=== PATIENT | female | born 1960 | race Caucasian/White ===

== ENCOUNTER 2019-11-08 17:55 | Inpatient (IN) | payer OTHER ==
[~2019-11-08] VITALS: Ht 160 cm; Wt 133.4 kg
[2019-11-08] MEDS ORDERED: LISINOPRIL40 MG PO (18:29)
[2019-11-08] MEDS ORDERED: DILTIAZEM CD240 MG PO (18:30)
[2019-11-08] MEDS ORDERED: LAMICTAL100 MG PO (18:31)
[2019-11-08] MEDS ORDERED: LEVOXYL88 MCG PO (18:31)
[2019-11-08] MEDS ORDERED: SEROQUEL25 MG PO (18:33)
[2019-11-08] MEDS ORDERED: MOBIC15 MG PO (18:33)
--- NOTE | 2019-11-08 20:30 | NUR ---
LUCERO CHAUHAN a 59 year old F admitted via stretcher from the [facility] ED as a voluntary admission. Arrived on unit at 2010. ALLERGIES: NKA. Vital signs are: [id number] 148/72. The client signed the following forms with stated understanding: Authorization For The Release of Medical Information, Clothing List, Consent to Voluntary Admission and Hospitalization, Consent and Release Forms/Receipt of Rights, Acknowledgement of Advance Directive Information, Behavioral Health Consent Form, and Informed Consent of Medications. Admitted under the services of Dr. DENISE HARE,[employer]. A search was conducted and hazardous articles were removed. Client was oriented to the unit. ALERT & ORIENTED X4. DEPRESSED & CRYING. STATED [facility] LIED TO HER & DID NOT KNOW SHE WAS COMING TO A ABDIEL UNIT. DENIES SUICIDAL FEELINGS AT THIS TIME. CONTRACTS FOR SAFETY. VERY CO-OPERATIVE. FRIDA LAI
--- NOTE | 2019-11-08 21:21 | NUR ---
DR LOPEZ NOTIFIED OF MEDICAL CONSULT & MED REQ READY FOR REVIEW
[2019-11-08 21:31] VITALS: BP 148/72
[2019-11-08 21:51] VITALS: BP 148/72
--- NOTE | 2019-11-08 22:30 | NUR ---
PT WAS MEDICATED WITH ATIVAN 1 MG PO @ 2136 FOR INCREASED ANXIETY. PT VERY HOPELESS & HELPLESS. NUMEROUS CRYING EPISODES. SHE DID STATE ATIVAN WAS EFFECTIVE APPROXIMATELY HALF AN HOUR LATER & THIS WAS ALSO NOTED SHE WAS CALMER.
--- NOTE | 2019-11-08 22:49 | NUR ---
DR CHANDLER ON UNIT TO SEE PT FOR MEDICAL MANAGEMENT.
--- NOTE | 2019-11-09 05:17 | NUR ---
PT HAS SLEPT IN THE QUIET ROOM ON A COUCH PER HER CHOICE. SLETP FROM [id number]. PRESENTLY AWAKE. TEARFUL. LOOKING AT MAGAZINES.
[2019-11-09 08:00] VITALS: BP 140/77
[2019-11-09 08:10] LABS: BASO % 0.4 % (0.0-1.0); EOS # 0.3 10*3/uL (0.0-0.4); EOS % 2.8 % (1.0-4.0); HEMATOCRIT 42.3 % (37.0-47.0); HEMOGLOBIN 13.6 g/dl (12.0-16.0); LYMPH % 19.9 % (27.0-41.0); MEAN CELL VOLUME 87.2 fl (81.0-99.0); MEAN CORPUSCULAR HGB CONC 32.2 g/dl (33.0-37.0); MEAN PLATELET VOLUME 9.4 fl (9.6-12.3); MONO # 0.7 10*3/uL (0.1-1.0); MONO % 6.9 % (3.0-9.0); NEUT # 6.9 10*3/uL (2.3-7.9); NEUT % 69.8 % (47.0-73.0); PLATELET COUNT AUTOMATED 410 10*3/uL (130-400); RED BLOOD COUNT 4.85 10*6/uL (4.10-5.10); RED CELL DISTRI WIDTH 12.8 % (0-14.5); WHITE BLOOD COUNT 9.9 10*3/uL (4.8-10.8)
[2019-11-09 08:48] LABS: ALBUMIN 3.7 gm/dl (3.1-4.5); BUN 17 mg/dl (7-24); CHLORIDE 108 mmol/L (98-107); POTASSIUM 3.8 mmol/L (3.5-5.1); SODIUM 140 mmol/L (136-145)
[2019-11-09 09:00] LABS: ALKALINE PHOSPHATASE 79 U/L (45-117); CREATININE 0.89 mg/dL (0.55-1.02); SGOT/AST 9 IU/L (3-35); SGPT/ALT 20 U/L (12-78); TOTAL PROTEIN 8.1 gm/dL (6.4-8.2)
[2019-11-09 09:56] LABS: VITAMIN D, 25-HYDROXY 15.4 ng/mL (30-100)
--- NOTE | 2019-11-09 11:47 | NUR ---
DR LUONG ON UNIT TO SEE PATIENT
--- NOTE | 2019-11-09 12:30 | NUR ---
Faxed admission clinical to [facility]. Awaiting response.
--- NOTE | 2019-11-09 12:57 | NUR ---
SMALL GROUP PT ATTENDED A SMALL GROUP SESSION WITH ANOTHER PEER AND THIS ARMOR RECONNAISSANCE SPECIALIST. DISCUSSION WAS CENTERED ON SUICIDAL IDEATIONS AND COPING STRATEGIES FOR SUCH. PT WAS OPEN IN DISCUSSION AND RECEPTIVE TO COPING STRATEGIES.
--- NOTE | 2019-11-09 14:43 | NUR ---
P-DEPRESSED MOOD, ISOLATIVE, WITHDRAWN, TEARFUL I-REDIRECTION WITH 1:1 THERAPEUTIC INTERVENTIONS. CONTINUE TO EDUCATE AND ENCOURAGE MEDICATION COMPLIANCE R-PATIENT MEDICATION COMPLIANT. PATIENT TEARFUL AND ISOLATIVE THROUGHOUT SHIFT. PATIENT INTERACTING WITH STAFF WHEN APPROACHED AND ENCOURAGED TO TALK. PATIENT WITH EPISODES OF CRYING AND TEARFUL THROUGHOUT SHIFT. PATIENT HAVING FEELINGS OF HOPELESSNESS. PATIENT VERBALIZED TO THIS NURSE THAT SHE IS "HOPEFUL THAT THE MEDICATION CHANGES WILL WORK AND MEDICATION CHANGES IN THE PAST HAVE NOT BEEN SUCCESSFUL". PATIENT PARTICIPATING IN GROUP THERAPY WITH RECREATIONAL THERAPIST AND ONE OTHER PATIENT. PATIENT MOVED TO ANOTHER ROOM TO HELP DECREASE STIMULI OF OTHER PATIENTS THAT ARE TRIGGERS FOR EPISODES OF TEARFULNESS. PATIENT CONTINENT OF BLADDER. PATIENT WITH LIMP WHEN AMBULATING. PATIENT ABLE TO DISCUSS WITH DR LUONG CONCERNS OF DISCOLORATION ON POSTERIOR TO LATERAL RIGHT LOWER EXTREMITY. PATIENT SATISFIED WITH DR LUONG'S EXPLANATION TO DISCOLORATION IN RIGHT LOWER EXTREMITY. PATIENT ABLE TO TALK TO SISTER WOLF VIA TELEPHONE. P-CONTINUE TO ENCOURGE MEDICATION COMPLIANCE, ENCOURAGE GROUP THERAPY WHILE AWAKE
--- NOTE | 2019-11-09 15:33 | NUR ---
DR BROWER UPDATE ABOUT PATIENT HOME MEDICATION NEEDING TO BE REVIEWED. DR BROWER TO REVIEW.
--- NOTE | 2019-11-09 15:47 | NUR ---
PM GROUP PT CHOSE NOT TO ATTEND AFTERNOON GROUP THERAPY BUT STAYED IN A QUIET ROOM READING.
--- NOTE | 2019-11-09 15:50 | NUR ---
Treatment Plan meeting was held with Dr. Salvador, RN, AT, THEATRE PROGRAM DIRECTOR-S and Thaw Shed Heater Tender. Plan for discharge Wednesday. Pt. will return home.
[2019-11-09 19:46] VITALS: BP 142/82
--- NOTE | 2019-11-09 19:56 | NUR ---
24 HR chart check completed.
--- NOTE | 2019-11-09 21:29 | NUR ---
P-DEPRESSED, ISOLATIVE, WITHDRAWN I-ENCOURAGE VENTILATION OF FEELINGS & PROVIDE EMOTIONAL SUPPORT. PROVIDE MEDICATION EDUCATION. ADMINISTER MEDS & MONITOR SLEEP R-PT HAS REMAINED IN HER ROOM READING A BOOK. SHE DOES HAVE A SLIGHTLY BRIGHTER AFFECT & STATED SHE IS STILL DEPRESSED BUT IS FEELING BETTER. NO EPISODES OF CRYING. DENIES SUICIDAL FEELINGS. CONTRACTS FOR SAFETY. RECEPTIVE TO MEDICATION EDUCATION & COMPLAINT WITH MEDS. ALERT & ORIENTED X 4. SHE IS MORE RECEPTIVE TO STAYING HERE FOR TREATMENT. REFUSED SNACK. P-CONTINUE TO MONITOR & PROVIDE PHYSICAL & EMOTIONAL SUPPORT NEEDED.
--- NOTE | 2019-11-10 05:49 | NUR ---
PT HAS SLEPT PAST 2245 WITH INTERMITTENT AWAKENINGS FOR A TOTAL OF 4 HOURS OF INTERUPTED SLEEP. UP TO BATHROOM INDEPENDENTLY.
[2019-11-10 07:54] VITALS: BP 143/77
--- NOTE | 2019-11-10 08:00 | NUR ---
Treatment Plan meeting was held with GERMAINE Hammond RN, FLIGHT FOLLOWER-S and Leather Production Worker. Plan for discharge Next week. Pt. will return home at discharge.
[2019-11-10 08:54] LABS: CHOLESTEROL 201 mg/dL (<200); HDL CHOLESTEROL 59 mg/dl (40-60); LDL CHOLESTEROL 129 mg/dL (9-159); TRIGLYCERIDES 67 mg/dl (<150); VLDL CHOLESTEROL 13 mg/dL (6-40)
--- NOTE | 2019-11-10 11:13 | NUR ---
DR LUONG ON UNIT TO ASSESS PT, UPDATE PROVIDED.
--- NOTE | 2019-11-10 11:57 | NUR ---
P-DEPRESSED MOOD, ISOLATIVE, WITHDRAWN I-REDIRECTION WITH 1:1 THERAPEUTIC INTERVENTIONS. CONTINUE TO EDUCATE AND ENCOURAGE MEDICATION COMPLIANCE R-PATIENT MEDICATION COMPLIANT. PATIENT ISOLATIVE AND WITHDRAWN IN QUIET AREA OR IN ROOM THROUGHOUT SHIFT. PATIENT INTERACTING WITH STAFF THROUGHOUT SHIFT. PATIENT WITH NO TEARFUL EPISODES AT THIS TIME. PATIENT READING BOOKS THROUGHOUT SHIFT. PATIENT EDUCATED ABOUT MEDICATION THIS SHIFT. P-CONTINUE TO ENCOURAGE MEDICATION COMPLIANCE, ENCOURAGE GROUP THERAPY WHILE AWAKE
--- NOTE | 2019-11-10 12:11 | NUR ---
Individual session with pt this AM. Discussed negative self-talk and the damage that this has on self-esteem. Pt voiced her negative self-talk that ruminates. Educated pt about the power and benefits of self-affirmations. Reviewed a list of self-affirmations and had pt speak each self-affirmation several times. Discussed pt's emotions linked to each affirmation. Reviewed the affirmations list again with pt and chose those that pt will plan to focus on. This BULLET LUBRICATING MACHINE OPERATOR-S requested that pt review the list of affirmations daily and speak them out loud several times. Also suggested to pt that pt look at her- self in the mirror when stating the affirmations. Pt is agreeable to this. Discussed pt's stressors of unemployment and no income. Discussed possible employment prospects. Pt is motivated for treatment. She continues to voiced depression and anxiety but does recognize that her anxiety has lessened. Pt also voiced a fear of returning home too soon and not being prepared to deal with her life stressors.
--- NOTE | 2019-11-10 15:21 | NUR ---
Left educational material about EMDR at pt's bedside. Pt was sleeping soundly.
[2019-11-10 19:30] VITALS: BP 117/70
--- NOTE | 2019-11-10 19:55 | NUR ---
24 HR chart check completed.
--- NOTE | 2019-11-10 21:43 | NUR ---
P-DEPRESSED, ISOLATIVE, WITHDRAWN I-ENCOURAGE VENTILATION OF FEELINGS & PROVIDE EMOTIONAL SUPPORT. PROVIDE MEDICATION EDUCATION. ADMINISTER MEDS & MONITOR SLEEP R-PT HAS REMAINED IN HER ROOM READING A BOOK. BRIGHTER AFFECT. STATED SHE IS STILL DEPRESSED BUT IS FEELING BETTER & HER ANXIETY IS MUCH BETTER & SHE IS NOT SHAKING ANY MORE. NO EPISODES OF CRYING. DENIES SUICIDAL FEELINGS. CONTRACTS FOR SAFETY. RECEPTIVE TO MEDICATION EDUCATION & COMPLAINT WITH MEDS. ALERT & ORIENTED X 4. REFUSED SNACK. P-CONTINUE TO MONITOR & PROVIDE PHYSICAL & EMOTIONAL SUPPORT NEEDED.
--- NOTE | 2019-11-11 05:56 | NUR ---
PT HAS SLEPT PAST 2300
[2019-11-11 08:00] VITALS: BP 130/68
--- NOTE | 2019-11-11 12:05 | NUR ---
AM GROUP/EXERCISE/BINGO/CRAFT PT IN ATTENDNACE AND PARTICIPATED IN ALL ACTIVITY EXCEPT FOR CRAFT. PT SITTING IN BACK OF ROOM ALONE ALTHOUGH ENCOURAGED TO SIT WITH PEERS AT THE FRONT OF THE ROOM. PT PLEASANT AND ON TASK WITH NO S.I. EXPRESSED AT THIS TIME. PT WILL CONTINUE TO ATTEND AND PARTICIPATE IN FUTURE GROUP SESSIONS.
--- NOTE | 2019-11-11 15:56 | NUR ---
PM GROUP/RIDDLES/CRAFT PT ENCOURAGED TO PARTICIPATE BUT PT CHOSE TO REMAIN IN ROOM RELAXING AT HTIS TIME. PT WILL CONTINUE TO BE ENOCURAGED TO ATTEND AN DPARTICIPATE IN FUTURE GROUP SESSIONS.
--- NOTE | 2019-11-11 16:35 | NUR ---
PT REMAINS SOMEWHAT ISOLATIVE THIS SHIFT, ALTHOUGH LESS SO. STATES SHE IS DEPRESSED AT THE THOUGHT OF GOING HOME BECAUSE SHE KNOWS THAT NOTHING HAS CHANGED. PT ENCOURAGED TO ATTEND GROUP THERAPY. ENCOURAGED TO VERBALIZE THOUGHTS THROUGH 1:1 INTERACTION WITH THIS NURSE. PT DID ATTEND MORNING GROUP THERAPY AND HAS BEEN MORE INTERACTIVE WITH STAFF. PT EDUCATED THAT ALTHOUGH WE CANNOT CHANGE WHAT IS HAPPENING AT HOME, WE CAN WORK ON POSITIVE COPING MECHANISMS THAT CAN HELP HER CHANGE THE WAY SHE REACTS TO THE SITUATION. PT STATES SHE AGREES AND IS WILLING TO WORK ON IT. WILL CONTINUE TO ENCOURAGE PARTICIPATION IN GROUP THERAPY FOR SOCIALIZATION AND SUPPORT. WILL CONTINUE TO ENCOURAGE PT TO VERBALIZE THOUGHTS AND FEELINGS. Q15 MIN MONITORING PER POLICY FOR SAFETY.
[2019-11-11 19:49] VITALS: BP 120/60
--- NOTE | 2019-11-11 22:02 | NUR ---
P-DEPRESSED MOOD, ISOLATIVE, WITHDRAWN I-REDIRECTION WITH 1:1 THERAPEUTIC INTERVENTIONS. CONTINUE TO EDUCATE AND ENCOURAGE MEDICATION COMPLIANCE R-PATIENT MEDICATION COMPLIANT. PATIENT ISOLATIVE AND WITHDRAWN IN IN ROOM THROUGHOUT SHIFT. PATIENT INTERACTING WITH STAFF. PATIENT WITH NO TEARFUL EPISODES AT THIS TIME. PATIENT READING BOOKS AT HS. PATIENT STATED TO THIS NURSE "THE KLONOPIN THAT I TAKE DURING THE DAY MAY BE TOO MUCH. I'LL TALK TO THEM ABOUT IT TOMORROW". PATIENT REFUSED NOURISHMENT AT HS BUT PROVIDED FLUIDS. PATIENT DENIES SUICIDAL OR HOMICIDAL IDEATIONS. PATIENT WITH NO HALLUCINATIONS OR DELUSIONS. P-CONTINUE TO ENCOURAGE MEDICATION COMPLIANCE, ENCOURAGE GROUP THERAPY WHILE AWAKE
--- NOTE | 2019-11-12 05:43 | NUR ---
PATIENT SLEPT 6 HOURS OF INTERRUPTED SLEEP THROUGHOUT SHIFT. Q 15 MINUTE CHECKS MAINTAINED. 24 HR chart check completed.
[2019-11-12 07:56] VITALS: BP 119/67
[2019-11-12 20:08] VITALS: BP 131/59
--- NOTE | 2019-11-13 01:14 | NUR ---
24 HR chart check completed.
--- NOTE | 2019-11-13 02:27 | NUR ---
P- ISOLATIVE, DEPRESSED, WITHDRAWN I- EDUCATE AND ENCOURAGE MED COMPLIANCE. ENCOURAGE TO VERBALIZE FEELINGS. R- IS MED COMPLIANT, C/O KLONOPIN MAKING HER SLEEPY DURING THE DAY. INFORMED THAT AM DOSE HAS BEEN DECREASED. STATES SHE CAN'T SLEEP AT NIGHT WITHOUT IT.REFUSED HS SNACK, BUT TAKES FLUIDS WELL. NO SI/HI IDEATIONS, P- CONTINUE TO ENCOURAGE MED COMPLIANCE , AND INTEACTION WITH PEERS And staff.
--- NOTE | 2019-11-13 05:35 | NUR ---
PATIENT SLEPT 4 HOURS LAST NIGHT.
[2019-11-13 07:53] VITALS: BP 108/68
--- NOTE | 2019-11-13 08:00 | NUR ---
Treatment Plan meeting was held with Dr. Salvador, GERMAINE Hammond, RN, AT, OPERATIONS PROJECT MANAGER-S and Airport Operations Specialist. Plan for discharge at the end of the week. Pt. will return home at this point.
--- NOTE | 2019-11-13 11:53 | NUR ---
AM GROUP MORNING GROUP THERAPY WAS SHORTENED DUE TO PT 1:1. PT WAS PRESENT FOR GROUP AND PARTICIPATED BY USING THE LIGHT THERAPY AND DISCUSSING NEGATIVE THOUGHT PATTERNS AND COPING SKILLS FOR SUCH. PT WAS ENGAGED AND INTERESTED IN LEARNING NEW SKILLS.
--- NOTE | 2019-11-13 14:18 | NUR ---
Spoke to Evens Goncalves at [facility]. They have the patient as inactive in their system. He did run a statewide check and the patient is active. He e-mailed his enrollment team to correct the active status. He will return call to when patient's status is active to explain how to start the authorization process.
--- NOTE | 2019-11-13 14:37 | NUR ---
Individual session with pt this afternoon. Time was primarily spent on problem solving for pt's current life stressors. Pt also spoke of current support system and emotioanl resources for when pt returns home.
--- NOTE | 2019-11-13 15:43 | NUR ---
PM GROUP PT ATTENDED AFTERNOON GROUP THERAPY AND PARTICIPATED IN ALL ACTIVITIES. PT WAS TALKATIVE AND ON TASK. PT EXPRESSED NO SUICIDAL IDEATIONS WHILE IN GROUP.
--- NOTE | 2019-11-13 16:05 | NUR ---
Received call back from Evens at [facility]. Patient is now active in their system. Faxed admission clinical through 11/12. Awaiting response.
--- NOTE | 2019-11-13 16:43 | NUR ---
P: TEARFUL AT TIMES, HOPELESS/HELPLESS I: PROVIDED 1:1 FOR THERAPEUTIC COMMUNICATION PROVIDED. PROVIDED MEDICATION EDUCATION. ASSISTED PT IN IDENTIFYING COPING MECHANISMS. MONITORED BEHAVIORS WITH Q15 MINUTE SAFETY CHECKS. R: PT STATED SHE FELT BETTER AFTER BRAINSTORMING WITH STAFF FOR COPING SKILLS. P: CONTINUE TO OFFER THERAPEUTIC COMMUNICATION AND MONITOR BEHAVIORS WITH Q15 MINUTE SAFETY CHECKS. CONTINUE TO PROVIDE MEDICATION EDUCATION. SEE [facility] FLOWSHEET FOR SPECIFIC MONITORING.
[2019-11-13 19:48] VITALS: BP 130/62
--- NOTE | 2019-11-13 20:04 | NUR ---
24 HR chart check completed.
--- NOTE | 2019-11-13 20:42 | NUR ---
EVENING/POSITIVE SELF-TALK PT IN ATTENDANCE AND PARTICIPATED IN ALL GROUP ACTIVITY. PT PLEASANT AND ON TASK WITH NO S.I. EXPRESSED AT THIS TIME. PT WILL CONTINUE TO ATTEND AND PARTICIPATE IN FUTRUE GROUP SESSIONS.
--- NOTE | 2019-11-13 23:41 | NUR ---
P-DEPRESSED, HOPELESS/HELPLESS I-ENCOURAGE VENTILATION OF FEELINGS & PROVIDE EMOTIONAL SUPPORT. PROVIDE MEDICATION EDUCATION. ADMINISTER MEDS & MONITOR SLEEP R-PT PARTICIPATED IN GROUP ACTIVITIES IN THE DINING ROOM WITH OTHER PEERS. SOCIALIZING & INTERACTING, LAUGHING. BRIGHT AFFECT. DURING 1:1 REPORTS FEELING BETTER BUT STILL HAVING SOME ANXIETY. DENIES SUICIDAL FEELINGS. CONTRACTS FOR SAFETY. COMPLAINT WITH MEDS. ALERT & ORIENTED X 4. ATE SNACK. P-CONTINUE TO MONITOR & PROVIDE PHYSICAL & EMOTIONAL SUPPORT NEEDED.
--- NOTE | 2019-11-14 05:11 | NUR ---
PT HAS SLEPT QUIETLY PAST 2200
[2019-11-14 07:49] VITALS: BP 128/73
--- NOTE | 2019-11-14 08:00 | NUR ---
Treatment Plan meeting was held with Dr. Salvador, RN, AT, MAIN LINE ASSEMBLER-S and Tool Sharpener. Plan for discharge at the end of the week. Pt. will return home with Follow Up arranged.
--- NOTE | 2019-11-14 10:29 | NUR ---
P: PT REPORTS FEELING A LITTLE ANXIOUS "IM A LITTLE WORRIED ABOUT GOING HOME, THE SITUATION THERE HAS NOT CHANGED." I: PROVIDE EMOTIONAL SUPPORT AND 1:1 FOR PT TO VOICE FEELINGS, ENCOURAGE MED COMPLIANCE AND PROVIDE MED EDUCATION, ENCOURAGE GROUP PARTICIPATION AND SOCIALIZTION R: PT ALERT TO PERSON, PLACE, TIME AND SITUATION. PT MED COMPLIANT WITHOUT DIFFICULTY, MED EDUCATION PROVIDED. PT GOAL DIRECTED TOWARDS DISCHARGE STATES "I AM GOING TO LOOK FOR ANOTHER JOB WHILE WAITING ON MY DISABILITY TO COME THROUGH, I NEED TO WORK AND YOU GUYS HAVE HELPED ME SO MUCH HERE, I CAN DEAL WITH MY SITUATIONS AT HOME." PT DENIES ANY SUICIDAL THOUGHTS, VERBALLY CONTRACTS FOR SAFETY. NO HALLUCINATIONS OR DELUSIONS NOTED. PT AMBULATORY THROUGHOUT UNIT, GAIT STEADY. PT CONTINENT OF BOWEL AND BLADDER. P: MONITOR PT BEHAVIORS ON Q15 MIN SAFETY CHECKS, ENCOURAGE MED COMPLIANCE AND PROVIDE MED EDUCATION, ENCOURAGE GROUP PARTICIPATION AND SOCIALIZATION, PROVIDE EMOTIONAL SUPPORT AND 1:1 FOR PT TO VOICE FEELINGS.
--- NOTE | 2019-11-14 11:39 | NUR ---
AM GROUP/MUSIC THERAPY PT ATTENDED AND PARTICIPATED IN ALL GROUP ACITIVITIES. PT WAS FOCUSED AND ON TOPIC. PT EXPRESSED NO SUICIDAL IDEATIONS WHILE IN GROUP.
--- NOTE | 2019-11-14 12:41 | NUR ---
ZACKERY PARSONS ROUGH AND TRUEING MACHINE OPERATOR ON UNIT TO ASSESS PT, UPDATE PROVIDED.
--- NOTE | 2019-11-14 13:34 | NUR ---
IP 6 days ann per Martha Austin, NRD 11/14, auth # [id number]
--- NOTE | 2019-11-14 13:43 | NUR ---
Faxed continued review stay clinical to [facility]
--- NOTE | 2019-11-14 15:22 | NUR ---
Group therapy this afternoon. Discussed life stressors, negative coping skills, and positive coping skills. Provided education about the benefits of positive coping skills. Patients then named positive coping skills. Hand-outs were provided. Pt participated fully in discussion and was supportive of her peers. Pt was able to list several positive coping skills.
--- NOTE | 2019-11-14 15:37 | NUR ---
PM GROUP PT DID NOT ATTEND AFTERNOON GROUP THERAPY. PT WAS IN A GROUP WITH WHEEL ADJUSTER.
--- NOTE | 2019-11-14 17:55 | NUR ---
SPOKE WITH DR MEYERS AT [phone] RE: PT REQUESTING ORDER FOR GOLDBOND POWDER D/T THE [place], MED UPDATED IN PT HOME MED REC. MED CONTINUED PER DR. MEYERS. FAMILY BROUGHT IN GODLBOND POWDER, MED TAKEN TO PHARMACY.
[2019-11-14] MEDS ORDERED: GOLD BOND MEDI113 G2 T (17:59)
[2019-11-14 19:50] VITALS: BP 124/76
--- NOTE | 2019-11-14 20:39 | NUR ---
EVENING/YAHTZEE/MUSIC PT ATTENDED AND PARTICIPATED IN ALL ACTIVITY. PT PLEASANT AND ON TASK WITH NO S.I. EXPRESSED. PT WILL CONTINUE TO ATTEND AND PARTICIPATE IN FUTURE GROUP SESSIONS.
--- NOTE | 2019-11-14 22:41 | NUR ---
NO ADVERSE BEHAVIORS NOTED. PATIENT ALERT AND ORIENTED X4. PT CALM, COOPERATIVE, AND INTERACTIVE. PT SAT IN DINING ROOM WITH PEERS TO WATCH A MOVIE AND HAD SNACK. DURING 1:1 PATIENT STATED THAT SHE FEELS SHE IS DOING GOOD AND HAD AN OKAY DAY. PT DENIES SUICIDAL IDEATIONS AND CONTRACTED FOR SAFETY. PT ALSO DENIES HI, HALLUCINATIONS, OR PAIN. PT MEDICATION COMPLIANT WITHOUT DIFFICULTY AFTER REVIEW. PT INDEPENDENT IN ADL'S, AMBULATORY WITH A STEADY GAIT, CONTINENT OF BOWEL AND BLADDER. PT CURRENTLY LAYING DOWN WITH EYES CLOSED, RESPIRATIONS EASY AND REGULAR, NO SIGNS OR SYMPTOMS OF DISTRESS NOTED. PLAN IS TO CONTINUE MONITOR MOOD AND BEHAVIORS. PROVIDE 1:1 WITH THERAPEUTIC INTERVENTIONS. PROVIDE EMOTIONAL SUPPORT NEEDED. ENCOURAGE MEDICATION COMPLIANCE AND EDUCATE. MAINTAIN Q 15 MIN CHECKS.
--- NOTE | 2019-11-14 23:50 | NUR ---
24 HOUR CHART CHECK COMPLETED.
--- NOTE | 2019-11-15 08:00 | NUR ---
Treatment Plan meeting was held with Dr. Salvador, RN, RRTS-S and Drywall Finishing Foreman. Plan for discharge Wed/Wednesday. Pt. will return home at discharge with Follow up scheduled.
[2019-11-15 08:07] VITALS: BP 110/62
--- NOTE | 2019-11-15 10:35 | NUR ---
Individual time spent with pt this AM assisting pt in completing Function Report for Social Security Disability.
--- NOTE | 2019-11-15 10:48 | NUR ---
ZACKERY PARSONS POSTING SPECIALIST ON UNIT TO ASSESS PT, UPDATE PROVIDED.
--- NOTE | 2019-11-15 11:24 | NUR ---
NO ADVERSE MOODS OR BEHAVIORS NOTED AT THIS TIME. PT ALERT TO PERSON, PLACE, TIME AND SITUATION. PT MED COMPLIANT WITHOUT DIFFICULTY, MED EDUCATION PROVIDED. PT CALM, MOOD IS STABLE. PT REPORTS FEELING "A LITTLE ANXIOUS, BUT BUT BEING HERE HAS HELPED SO MUCH." NO HALLUCINATIONS OR DELUSIONS NOTED. PT DENIES ANY SUICIDAL THOUGHTS, VERBALLY CONTRACTS FOR SAFETY. PT AMBULATORY THROUGHTOUT UNIT, GAOT STEADY. PT CONTINENT OF BOWEL AND BLADDER. PLAN IS TO MONITOR PT BEHAVIORS ON Q15 MIN SAFETY CHECKS, ENCOURAGE MED COMPLIANCE AND PROVIDE MED EDUCATION, PROVIDE EMOTIONAL SUPPORT AND 1:1 FOR PT TO VOICE FEELINGS, ENCOURAGE GROUP PARTICIPATION AND SOCIALIZATION.
[2019-11-15 19:48] VITALS: BP 116/58
--- NOTE | 2019-11-15 23:02 | NUR ---
PT PLEASANT AND COOPERATIVE, MEDICATION COMPLIANT. DENIES SI. STATES SHE IS FEELING BETTER. PT INTERACTIVE WITH STAFF AND PEERS. Q15 MIN MONITORING PER POLICY FOR SAFETY.
--- NOTE | 2019-11-16 05:42 | NUR ---
pt slept approximately 7 hours this shift
--- NOTE | 2019-11-16 07:24 | NUR ---
IP ann 11/08-11/13, IP denied 11/14 forward per Martha at [facility]. Will set up peer to peer. Ref # [id number]. kit planner notified.
[2019-11-16 08:19] VITALS: BP 142/80
--- NOTE | 2019-11-16 10:15 | NUR ---
Spoke to Emily at [facility] regarding setting up peer to peer. Peer to peer set up for Dr. Salvador. Dr. Melissa Goldstein will call Dr. Salvador either Wednesday or Wednesday between the hours of 8am and 11am. Notified Dr. Salvador and inventory control planner of peer to peer set up.
--- NOTE | 2019-11-16 11:49 | NUR ---
AM GROUP PT WAS IN A PRIVATE SESSION WITH LIKE PEERS AND THE EDITOR TRADE JOURNAL.
--- NOTE | 2019-11-16 15:04 | NUR ---
P- PT REPORTS MOOD HAS IMPROVED, DENIES FEELING DEPRESSED, PT CONTINUES TO REPORT FEELINGS OF ANXIETY ESPECIALLY WHEN THINKING ABOUT RETURNING HOME. I- ORIENTATION, MOOD AND BEHAVIOR ASSESSED. ASSESSED PT FOR SI/HI, INTENT OR PLAN. ASSESSED PT FOR S/S HALLUCINATIONS, PARANOIA AND/OR DELUSIONS. MEDICATIONS ADMINISTERED PER PHYSICIAN'S ORDERS. ASSISTANCE WITH ADL CARE PROVIDED NEEDED. ENCOURAGED PT TO ATTEND AND PARTICIPATE IN CABRAL MILIEU GROUPS AND ACTIVITIES. R- PT IS ALERT AND ORIENTED X4. MEMORY INTACT. RESPS EASY AND EVEN ON ROOM AIR. SPEECH IS WNL AND COHERENT, ABLE TO MAKE NEEDS KNOWN WITHOUT DIFFICULTY. PT REPORTS MOOD HAS IMPROVED, STATES SHE IS FEELING BETTER AND LESS DEPRESSED. PT CONTINUES TO REPORT FEELING ANXIOUS ESPECIALLY WHEN ALONE OR WHEN SHE THINKS ABOUT RETURNING HOME PT STATES "I JUST KNOW THAT I'M GOING BACK HOME TO THE SAME ENVIRONMENT AND THAT NOTHING HAS CHANGED". PT ALSO STATES FEELING ANXIOUS ABOUT LOSING TIME HERE THAT SHE COULD BE PUTTING TOWARD LOOKING FOR A NEW JOB BUT STATES SHE DOESN'T FEEL LIKE SHE IS READY TO GO HOME YET EITHER. EMOTIONAL SUPPORT PROVIDED. AUTOMATION SALES MANAGER IS WORKING WITH PT REGARDING THESE CONCERNS. PT DENIES SI/HI, INTENT OR PLAN. PT DENIES HALLUCINATIONS, NO RESPONSE TO INTERNAL STIMULI NOTED. NO PARANOIA OR DELUSIONS NOTED. PT IS CALM, PLEASANT AND COOPERATIVE. MED COMPLIANT. INTERACTS WELL WITH STAFF AND PEERS. NO DISTRESS NOTED. P- PLAN TO CONTINUE CURRENT TREATMENT, CONTINUE TO MONITOR MOOD AND BEHAVIORS, PROVIDE APPROPRIATE REORIENTATION, REDIRECTION AND 1:1 NEEDED. CONTINUE TO ENCOURAGE MEDICATION COMPLIANCE WELL GROUP ATTENDANCE AND PARTICIPATION.
--- NOTE | 2019-11-16 15:42 | NUR ---
PM GROUP PT ATTENDED AFTERNOON GROUP THERAPY AND PARTICIPATED IN ALL ACTIVITIES. PT WAS LAUGHING AND JOKING WITH STAFF AND PEERS AND EXPRESSED NO ANXIETY OVER GOING HOME OR ANY SUICIDAL IDEATIONS.
--- NOTE | 2019-11-16 15:56 | NUR ---
Group therapy this AM. Pt participated fully in discussion about gratitude and the power of thankfulness. Discussed principles of gratitude and actions to incorporate the principles. Discussed the use of a gratitude journal. Hand-outs provided and gratitude journal sheets provided. Pt was supportive of her peers.
--- NOTE | 2019-11-16 16:29 | NUR ---
Treatment Plan meeting was held with Dr. Salvador, RN, AT, ASSISTANT DIRECTOR OF ADMISSIONS-S and Fish Hatchery Manager. Plan for discharge Wednesday/Wednesday with return home.
[2019-11-16 20:00] VITALS: BP 128/57
--- NOTE | 2019-11-16 21:54 | NUR ---
P-DEPRESSED MOOD I-REDIRECTION WITH 1:1 THERAPEUTIC INTERVENTIONS. CONTINUE TO EDUCATE AND ENCOURAGE MEDICATION COMPLIANCE R-PATIENT MEDICATION COMPLIANT. PATIENT INTERACTING WITH STAFF. PATIENT REFUSED NOURISHMENT AT BUT PROVIDED FLUIDS. PATIENT DENIES SUICIDAL OR HOMICIDAL IDEATIONS. PATIENT WITH NO HALLUCINATIONS OR DELUSIONS. PATIENT STATING "I JUST FEEL ANXIOUS ABOUT TRYING TO GO HOME. I'M TRYING TO FIND A JOB BUT I HAVE TO WAIT ON MY SISTER TO SEND MY RESUME TO [facility]. I'M JUST NERVOUS". PATIENT CONTINES TO WEAR VELCRO BRACE TO RIGHT FOOT TO HELP ASSIST WITH AMBULATION P-CONTINUE TO ENCOURAGE MEDICATION COMPLIANCE, ENCOURAGE GROUP THERAPY WHILE AWAKE
--- NOTE | 2019-11-17 05:57 | NUR ---
PATIENT SLEPT 8 HOURS OF UNINTERRUPTED SLEEP THROUGHOUT SHIFT. Q 15 MINUTE CHECKS MAINTAINED. 24 HR chart check completed.
[2019-11-17 07:43] VITALS: BP 138/68
--- NOTE | 2019-11-17 08:00 | NUR ---
Treatment Plan meeting was held with GERMAINE Hammond, RN, AT, INTELLIGENCE OFFICER-S and Mri Tech. Plan for discharge Wednesday with return home and Follow up appointments scheduled.
--- NOTE | 2019-11-17 08:04 | NUR ---
Patient in dining room eating with no c/o discomfort. Respirations easy and regular. Vital signs stable. No overt distress. DOMINIQUE SALAZAR
--- NOTE | 2019-11-17 11:48 | NUR ---
FAUSTINO ORONA/LILLI PT ATTENDED MORNING GROUP THERAPY AND PARTICIPATED IN ALL ACITIVITES. PT WAS ENGAGED AND ON TOPIC. PT STATED, "THANK YOU FOR ALL THE HELP THAT YOU HAVE GIVEN ME HERE, I WILL TAKE ALL OF THIS INFORMATION HOME AND USE IT!"
--- NOTE | 2019-11-17 13:41 | NUR ---
Group session co-facilitated with Kelly Barahona, general activities therapist. Topic of group: Diop's Day, types of love, and self-love/self-care. Pt attended and participated fully. Pt shared openly and was supportive of her peers. Pt is future-oriented as she shared about goals when she returns home.
--- NOTE | 2019-11-17 14:46 | NUR ---
PT SLIGHTLY ANXIOUS TODAY DURING DISCUSSION OF PLANS TO GO HOME EARLY NEXT WEEK. PT PROVIDED WITH 1:1 AND EMOTIONAL SUPPORT. DISCUSSED COPING SKILLS. PT STATES SHE KNOWS THAT GOING HOME IS INEVITABLE BUT SHE "LOVES IT HERE" AND JUST THINKS EVERYONE IS SO NICE. PT STATES THAT SHE WILL USE HER COPING SKILLS AND TRY TO SUCCEED, BUT SHE WILL MISS THE PEOPLE HERE AND IS WORRIED SHE MAY NOT. PT EDUCATED ON FOLLOW UP APPOINTMENTS THAT WILL BE MADE SO SHE CAN SPEAK TO PHYSICIANS AND COUNSELORS OUTPATIENT. PT VERBALIZED UNDERSTANDING AND STATES THAT SHE THINKS SHE WILL BE ABLE TO USE THE NEXT COUPLE OF DAYS TO PREPARE FOR DISCHARGE. WILL CONTINUE TO PROVIDE 1:1 AND EMOTIONAL SUPPORT APPROPRIATE. WILL CONTINUE TO MONITOR PT Q15 MIN PER POLICY FOR SAFETY.
--- NOTE | 2019-11-17 15:20 | NUR ---
Individual time spent with pt this afternoon assisting pt in problem solving for her current life stressors.
--- NOTE | 2019-11-17 15:33 | NUR ---
PM GROUP PT ATTENDED AND PARTICIPATED IN AFTERNOON GROUP THERAPY. PT EXPRESSED NO SUICIDAL IDEATIONS WHILE IN GROUP
[2019-11-17 20:14] VITALS: BP 133/61
--- NOTE | 2019-11-18 01:03 | NUR ---
NO ADVERSE BEHAVIORS NOTED. PATIENT ALERT AND ORIENTED X4. PT CALM, COOPERATIVE, AND INTERACTIVE. PT SAT IN DINING ROOM WITH PEERS TO WATCH A MOVIE AND HAD SNACK. DURING 1:1 PATIENT WAS PLEASANT AND STATED THAT SHE IS FEELING BETTER AND APPRECIATES WHAT EVERYONE HAS DONE FOR HER HERE. PT DENIES SUICIDAL IDEATIONS AND CONTRACTED FOR SAFETY. PT ALSO DENIES HI, HALLUCINATIONS, OR PAIN. PT MEDICATION COMPLIANT WITHOUT DIFFICULTY AFTER REVIEW. PT INDEPENDENT IN ADL'S, AMBULATORY WITH A STEADY GAIT, CONTINENT OF BOWEL AND BLADDER. PT SHOWERED THIS HS AND SHAVED WITH ASSISTANCE. PT CURRENTLY LAYING DOWN WITH EYES CLOSED, RESPIRATIONS EASY AND REGULAR, NO SIGNS OR SYMPTOMS OF DISTRESS NOTED. PLAN IS TO CONTINUE MONITOR MOOD AND BEHAVIORS. PROVIDE 1:1 WITH THERAPEUTIC INTERVENTIONS. PROVIDE EMOTIONAL SUPPORT NEEDED. ENCOURAGE MEDICATION COMPLIANCE AND EDUCATE. MAINTAIN Q 15 MIN CHECKS.
--- NOTE | 2019-11-18 05:29 | NUR ---
24 HOUR CHART CHECK COMPLETED.
--- NOTE | 2019-11-18 06:03 | NUR ---
PATIENT OBSERVED ON Q 15 MIN CHECKS TO HAVE SLEPT APPROX 6 HOURS WITH X1 AWAKENING TO USE THE RESTROOM. NO SIGNS OR SYMPTOMS OF DISTRESS NOTED.
[2019-11-18 07:51] VITALS: BP 122/75
--- NOTE | 2019-11-18 08:06 | NUR ---
Patient eating breakfast in dining room with peers at this time. Respirations easy and regular. Vital signs stable. No overt distress. EDIN TOTH PMTARUN- ON UNIT TO SEE PT AT THIS TIME. UPDATE GIVEN.
--- NOTE | 2019-11-18 11:31 | NUR ---
, AND ON UNIT TO SEE PT AT THIS TIME.
--- NOTE | 2019-11-18 11:57 | NUR ---
AM GROUP/AFFIRMATIONS/MUSIC PT ATTENDED AND PARTICIPATED IN ALL GROUP ACTIVITY. PT PLEASANT AND ON TASK. PT STATES "I AM FEELING EMPOWERED TODAY, I AM GOING TO LEAVE HERE AND GET A JOB!". PT EXPRESSES NO S.I. AT THIS TIME.
--- NOTE | 2019-11-18 12:45 | NUR ---
P- PT CONTINUES TO REPORT FEELING INCREASED ANXIETY WHEN THIKING ABOUT RETURNING HOME I- ORIENTATION, MOOD AND BEHAVIORS ASSESSED. ASSESSED PT FOR SI/HI, INTENT OR PLAN. ASSESSED PT FOR S/S HALLUCINATIONS, PARANOIA AND/OR DELUSIONS. MEDICATIONS ADMINISTERED PER PHYSICIAN'S ORDERS. ASSISTANCE WITH ADL CARE PROVIDED NEEDED. ENCOURAGED PT TO ATTEND AND PARTICIPATE IN [facility] GROUPS AND ACTIVITIES. R- PT IS ALERT AND ORIENTED X4. MEMORY INTACT. RESPS EASY AND EVEN ON ROOM AIR. MOOD APPEARS STABLE, PT STATES SHE IS FEELING "GOOD" BUT REPORTS CONTINUED EPISODES OF INCREASED ANXIETY WHEN SHE THINKS ABOUT RETURNING HOME BUT PT STATES "I KNOW I JUST HAVE TO DO IT EVENTUALLY". EMOTIONAL SUPPORT PROVIDED. AFFECT IS BROAD RANGE AND APPROPRIATE. SPEECH IS WNL AND COHERENT, ABLE TO MAKE NEEDS KNOWN WITHOUT DIFFICULTY. PT DENIES SI/HI, INTENT OR PLAN. PT DENIES HALLUCINATIONS, NO RESPONSE TO INTERNAL STIMULI NOTED. NO PARANOIA OR DELUSIONS NOTED. PT IS CALM, PLEASANT AND COOPERATIVE. INTERACTS WELL WITH STAFF AND PEERS. PT IS AMBULATORY WITH STEADY GAIT, INDEPENDENT WITH ADL CARE, CONTINENT OF BOWEL AND BLADDER. DISPLAYS GOOD APPETITE WITH ADEQUATE FLUID INTAKE. NO DISTRESS NOTED. P- PLAN TO CONTINUE CURRENT TREATMENT, CONTINUE TO MONITOR MOOD AND BEHAVIORS, PROVIDE APPROPRIATE REORIENTATION, REDIRECTION AND 1:1 NEEDED. CONTINUE TO ENCOURAGE MEDICATION COMPLIANCE WELL GROUP ATTENDANCE AND PARTICIPATION.
--- NOTE | 2019-11-18 15:55 | NUR ---
PM GROUP/AFFIRMATIONS/MOVIE PT ATTENDED AND PARTICIPATED IN ALL GROUP ACTIVITY. PT PLEASNAT AND ON TASK WITH NO S.I. OR ANXIETY EXPRESSED.
[2019-11-18 20:00] VITALS: BP 143/73
--- NOTE | 2019-11-18 20:21 | NUR ---
24 HR chart check completed.
--- NOTE | 2019-11-18 23:30 | NUR ---
PT SAT IN THE DINING ROOM SOCIALIZING & LAUGHING WITH SELECT PEERS. STABLE MOOD. BRIGHT AFFECT. PLEASANT. ALERT & ORIENTED X 4. DENIES SUICIDICAL THOUGHTS OR DEPRESSION. STATED SHE IS NOT ANXIOUS NOW BUT WILL PROBABLE BE A LITTLE ANXIOUS ON WEDNESDAY WHEN SHE STATED SHE IS BEING DISCHARGED. COMPLIANT WITH MEDS & STATES A GOOD UNDERSTANDING OF THEM & FEELS THAT THEY ARE WORKING FOR HER. VOICED HER PRAISE TO ALL OF THE STAFF FOR THEIR HELP & STATED SHE REALLY LIKES IT HERE. INDEPENDENT. WILL CONTINUE TO MONITOR.
--- NOTE | 2019-11-19 05:29 | NUR ---
PT HAS SLEPT PAST 2314
[2019-11-19 07:33] VITALS: BP 131/62
--- NOTE | 2019-11-19 08:23 | NUR ---
Patient sitting quietly with no c/o discomfort. Respirations easy and regular. Vital signs stable. No overt distress. DOMINIQUE SALAZAR
--- NOTE | 2019-11-19 12:14 | NUR ---
AM GROUP/LEISURE SKILLS PT ATTENDED AND PARTICIPATED IN ALL GROUP ACTIVITY. PT PLEASANT STATING "I CAN'T BELIEVE THE DIFFERENCE I FEEL NOW COMPARED TO HOW I FELT WHEN I FIRST GOT HERE. I CAN'T BELIEVE HOW MUCH BETTER I FEEL" PT EXPRESSES NO S.I. AT THIS TIME, BUT SPEAKS OF BEING HOPEFUL. PT WILL ATTEND/PARTICIPATE FUTURE GROUP SESSIONS AND WILL PLAN FOR DISCHARGE TOMORROW.
--- NOTE | 2019-11-19 12:48 | NUR ---
PT STATES SHE FEELS GOOD, BUT IS SOMEWHAT ANXIOUS ABOUT GOING HOME. PT PROVIDED WITH 1:1 AND EMOTIONAL SUPPORT. DISCUSSED COPING SKILLS. PT STATES THAT SHE IS GOING TO SPEND TIME AT HER SISTER IN LAW'S HOUSE SO THAT SHE DOES NOT FEEL SO ALONE. PT ENCOURAGED TO GET OUT INTO THE COMMUNITY AND FIND SOCIAL GROUPS TO KEEP HER FROM FEELING SO ISOLATED. WILL CONTINUE TO PROVIDE 1:1 AND EMOTIONAL SUPPORT APPROPRIATE. WILL CONTINUE TO MONITOR PT Q15 MIN PER POLICY FOR SAFETY.
--- NOTE | 2019-11-19 19:26 | NUR ---
24 HR chart check completed.
[2019-11-19 19:40] VITALS: BP 130/68
--- NOTE | 2019-11-19 21:48 | NUR ---
PT SAT IN THE DINING ROOM SOCIALIZING & LAUGHING WITH SELECT PEERS. STABLE MOOD. BRIGHT AFFECT. PLEASANT. ALERT & ORIENTED X 4. DENIES SUICIDICAL THOUGHTS OR DEPRESSION. VOICES POSITIVE COPING SKILLS AFTER DISCHARGE & POSITIVE FUTURE. COMPLIANT WITH MEDS & STATES A GOOD UNDERSTANDING OF THEM & FEELS THAT THEY ARE WORKING FOR HER. INDEPENDENT. WILL CONTINUE TO MONITOR.
--- NOTE | 2019-11-20 06:06 | NUR ---
PT HAS SLEPT PAST 2314
[2019-11-20] MEDS ORDERED: ABILIFY10 MG PO (07:41)
[2019-11-20] MEDS ORDERED: PRISTIQ50 MG PO (07:41)
[2019-11-20] MEDS ORDERED: CLONAZEPAM1 MG PO (07:41)
[2019-11-20 07:45] VITALS: BP 138/78
--- NOTE | 2019-11-20 07:45 | NUR ---
Patient eating breakfast in dining room with peers at this time. Pt offers no complaints. Respirations easy and regular. Vital signs stable. No overt distress. [facility] pt at this time, update given.
--- NOTE | 2019-11-20 08:00 | NUR ---
Treatment Plan meeting was held with GERMAINE Hammond, RN, AT, PARTITION MAKING MACHINE OPERATOR-S and Radio Performer. Plan for discharge today with return Home. Follow up appointments have been scheduled.
--- NOTE | 2019-11-20 10:28 | NUR ---
Individual session with pt this AM. Discussed pt's action plan for when pt returns home today. Pt shared her detailed plan for continuing to search for employment and cleaning of her home. Pt stated that she feels empowered and ready to go home. Discussed pt's psychiatric and counseling follow-ups. Pt is future-oriented as she shared of her plans for her home and job searching. She denies suicidal ideations stating that she feels hopeful and empowered. Pt is animated and displays a full affect.
--- NOTE | 2019-11-20 10:33 | NUR ---
Additional Counseling appointment added to follow up appointments for Hilary Hitchcock Counselor 11/30/2019 2:00 p.m.
--- NOTE | 2019-11-20 11:30 | NUR ---
NO ADVERSE MOODS OR BEHAVIORS THIS SHIFT. PT IS ALERT AND ORIENTED X4. MEMORY INTACT. RESPS EASY AND EVEN ON ROOM AIR. MOOD IS STABLE, PT REPORTS FEELING ANXIOUS ABOUT GOING HOME BUT STATES SHE IS FEELING HOPEFUL ABOUT THE FUTURE AND THANKS STAFF FOR CARE PROVIDED. PT STATES SHE FEELS GOOD ABOUT GETTING A NEW JOB SOON. PT DENIES SI/HI, INTENT OR PLAN. PT DENIES HALLUCINATIONS, NO RESPONSE TO INTERNAL STIMULI NOTED. NO PARANOIA OR DELUSIONS NOTED. PT IS CALM, PLEASANT AND COOPERATIVE. DISCHARGE INSTRUCTIONS REVIEWED WITH PT WITH PT'S STATED UNDERSTANDING OF ALL. ALL QUESTIONS ANSWERED. PT MET WITH SW AND SISTER PRIOR TO DISCHARGE.
--- NOTE | 2019-11-20 11:43 | NUR ---
AM GROUP/MOVIE PT ATTENDED MORNING GROUP THERAPY AND PARTICIPATED BY WATCHING THE MOVIE. PT IS SET TO DISCHARGE FROM THE UNIT THIS AFTERNOON.
--- NOTE | 2019-11-20 12:32 | NUR ---
Discharge instructions reviewed with patient/family. Patient receptive and verbalizes understanding. Follow-up care arranged. Written instructions given to patient/family. EDIN TOTH PT LEFT THE UNIT IN STABLE CONDITION AT 1209 VIA WHEELCHAIR WITH AND [facility]. ALL PERSONAL BELONGINGS WERE SENT WITH PT INCLUDING LOCK BOX ITEMS AND MEDS FROM PHARMACY.
--- NOTE | 2019-11-20 13:53 | NUR ---
Patient discharged today to home. Prior to pt's discharge, this news writer met with pt and pt's sister Conchita and discussed concerns that Conchita voiced about pt's return to home. Follow-up was scheduled with [facility] for psychiatry and Hilary Hitchcock for counseling. Pt improved while at [facility]. Pt denies suicidal ideations. She report to an improved mood and a lessening of anxiety. Pt participated in the programming.
--- NOTE | 2019-11-20 15:47 | NUR ---
Faxed discharge clinical to [facility]. Awaiting for result for peer to peer.
== END 2019-11-20 12:09 | disposition home or self-care (01) | DRG 751 ==
LOC: 3N 17:55
PROVIDERS: ADMIT Psychiatry & Neurology Psychiatry
DX: F33.2 Major depressive disorder, recurrent severe without psychotic features (principal); R45.851 Suicidal ideations; M19.90 Unspecified osteoarthritis, unspecified site; F41.9 Anxiety disorder, unspecified; F34.1 Dysthymic disorder; I10 Essential (primary) hypertension; E03.9 Hypothyroidism, unspecified; J45.909 Unspecified asthma, uncomplicated; Z82.49 Family history of ischemic heart disease and other diseases of the circulatory system; Z80.51 Family history of malignant neoplasm of kidney; Z80.0 Family history of malignant neoplasm of digestive organs; Z79.899 Other long term (current) drug therapy